=== PATIENT | female | born 1965 | race Caucasian/White ===

== ENCOUNTER → 2017-01-17 | Outpatient (CLI) | payer BC ==
[~2017-01-17] MED LIST: ACET-1256 PO; DEHA PO; INHALER INH; PROGESTERONE PO; VNTHFA/IN INH
--- NOTE | 2017-01-17 12:55 | MAMMOGRAPHY REPORT ---
BILATERAL DIGITAL SCREENING MAMMOGRAM TOMOSYNTHESIS WITH CAD: 01/17/2017 CLINICAL HISTORY: Routine screening. Patient has no complaints. TECHNIQUE: Breast tomosynthesis in addition to standard 2D mammography was performed. Current study was also evaluated with a Computer Aided Detection (CAD) system. COMPARISON: Comparison is made to exams dated: 01/13/2016 mammogram, 03/03/2014 mammogram, 02/25/2013 m ammogram, 02/15/2012 mammogram, 02/08/2011 mammogram, and 02/06/2010 mammogram - [facility] enter. BREAST COMPOSITION: There are scattered areas of fibroglandular density in both breasts. FINDINGS: No suspicious masses, calcifications, or areas of architectural distortion are noted in ei ther breast. There has been no significant interval change compared to prior exams. IMPRESSION: ACR BI-RADS CATEGORY 1: NEGATIVE There is no mammographic evidence of malignancy. A 1 year screening mammogram is recommended. The pa tient will receive written notification of the results. Approximately 10% of breast cancers are not detected with mammography. A negative mammographic report should not delay biopsy if a clinically suggestive mass is present. Kassie Garza M.D. ah/:01/17/2017 08:30:18 Mold Stacker: Shelia MILTON(Marlon)(M), [facility] letter sent: Normal 1/2 BI-RADS Code: ACR BI-RADS Category 1: Negative
== END | disposition home or self-care (01) ==
LOC: C.MAMM 07:31
PROVIDERS: ATTEND Nurse Practitioner Family
DX: Z12.31 Encounter for screening mammogram for malignant neoplasm of breast (principal)

== ENCOUNTER 2017-05-20 05:29 | Observation (INO) | payer BC, SELFPAY ==
[2017-05-15 09:14] VITALS: BMI 37.0
--- NOTE | 2017-05-15 09:38 | PAT Medication Instructions ---
Service Date May 15, 2017. Current Home Medication List Acetaminophen (Tylenol), 500 MG PO PRN [Inhaler], 2 PUFFS INH PRN Medication Instructions For Your Scheduled Surgery - Take the following medications the morning of surgery with a sip of water: Acetaminophen (Tylenol), 500 MG PO PRN (if needed) [Inhaler], 2 PUFFS INH PRN (if needed) - Take the following medications as scheduled the night before surgery: Acetaminophen (Tylenol), 500 MG PO PRN (if needed) [Inhaler], 2 PUFFS INH PRN (if needed) If you have any questions please call us at [phone] or [phone] or [phone]
[2017-05-15 10:26] LABS: INR 0.9 (0.9-1.1); PROTHROMBIN TIME (PATIENT) 10.1 SECONDS (9.0-12.0)
[2017-05-15 10:33] LABS: BASO % 0.4 %; BASO ABS # 0.03 K/uL (0-0.2); COMPLETE YES; EOS % 4.2 %; HEMATOCRIT 44.6 % (37-47); IG% 0.1 %; LYMPH % 39.4 %; LYMPH ABS # 2.64 K/uL (1.2-3.4); MEAN CELL VOLUME 88.7 fL (80-100); MEAN CORPUSCULAR HEMOGLOBIN 27.8 pg (25-34); MEAN CORPUSCULAR HGB CONC 31.4 g/dl (32-36); MEAN PLATELET VOLUME 10.1 fL (7.4-10.4); MONO % 8.2 %; NEUT % 47.7 %; PLATELET COUNT 383 K/uL (130-400); RED BLOOD COUNT 5.03 M/uL (4.2-5.4)
[2017-05-15 10:39] LABS: BUN/CREATININE RATIO 13.6 (10-20); CALCIUM 9.7 mg/dl (8.5-10.1); CREATININE 0.73 mg/dl (0.60-1.20); POTASSIUM 4.4 mmol/L (3.5-5.1)
[~2017-05-20] VITALS: Ht 160 cm; Wt 95.8 kg
[~2017-05-20 05:29] MED LIST changes: -DEHA PO; -PROGESTERONE PO; -VNTHFA/IN INH
[2017-05-20] MEDS ORDERED: VNTHFA/IN INH (05:53)
[2017-05-20 05:55] VITALS: BP 134/77; PULSE 90; TEMP 36.4; O2SAT 95; Ht 160 cm; Wt 95.8 kg
[2017-05-20] MEDS ORDERED: ENOXAPARIN 40 MG/0.4 ML SYR SQ SCH (06:00)
[2017-05-20] MEDS ORDERED: CEFAZOLIN 2000 MG/60 ML D5W IV SCH (06:00)
[2017-05-20] MEDS ORDERED: LACTATED RINGER'S 1000ML 500 ML IV ONE (06:00)
[2017-05-20] MEDS ORDERED: ROCURONIUM BROMIDE 10 MG/ML 5 ML VIAL IV ONE ×2 (06:54→08:41)
[2017-05-20] MEDS ORDERED: LIDOCAINE HCL 2% 2 ML VIAL (20MG/ML) ONE (06:54)
[2017-05-20] MEDS ORDERED: GLYCOPYRROLATE INJ 0.2 MG/ML VIAL ONE (06:54)
[2017-05-20] MEDS ORDERED: NEOSTIGMINE METHYLSULFATE 5 MG/5 ML SYR ONE (06:54)
[2017-05-20] MEDS ORDERED: DEXAMETHASONE SOD INJ 4 MG/ML VIAL ONE (06:54)
[2017-05-20] MEDS ORDERED: MIDAZOLAM HCL 1 MG/ML 2ML VIAL ONE (06:55)
[2017-05-20] MEDS ORDERED: FENTANYL CITRATE INJ 50 MCG/1 ML 2 ML VIAL ONE ×3 (06:55→13:18)
--- NOTE | 2017-05-20 07:01 | History & Physical Bridge Note ---
H&P Re-Evaluation Bridge Note: I have examined the patient, reviewed the History & Physical and in the interval since the performance of the History & Physical I have noted the following changes of clinical significance: No changes noted
[2017-05-20] MEDS ORDERED: LIDOCAINE HCL 1% 20 ML VIAL ONE ×3 (07:02→08:18)
[2017-05-20] MEDS ORDERED: BUPIVACAINE 0.5 % 5 MG/1 ML MPF 30ML VIAL ONE (07:02)
[2017-05-20] MEDS ORDERED: EpINEphrine INJ 1MG/ML AMP 1 MG/ML AMP ONE ×2 (07:02→08:18)
[2017-05-20] MEDS ORDERED: LIDOCAINE/EPINEPHRINE 1% 20 ML VIAL ONE ×2 (07:02→08:18)
[2017-05-20] MEDS ORDERED: SCOPOLAMINE 1.5 MG TDSY TD ONE ×2 (07:30→07:45)
[2017-05-20] MEDS ORDERED: ATROPINE SULFATE 0.1 MG/ML 5ML SYR IV PRN ×2 (07:45→13:30)
[2017-05-20] MEDS ORDERED: EpHEDrine SULFATE INJ 50 MG/ML AMP IV PRN ×2 (07:45→13:30)
[2017-05-20] MEDS ORDERED: PROMETHAZINE HCL INJ 6.25 MG in SODIUM CHLORIDE 0.9% 50ML 50 ML IV PRN ×2 (07:45→13:30)
[2017-05-20] MEDS ORDERED: FENTANYL CITRATE INJ 50 MCG/1 ML 2 ML VIAL IV PRN ×2 (07:45→13:30)
[2017-05-20] MEDS ORDERED: ONDANSETRON INJ 2 MG/ML 2 ML VIAL IV PRN ×3 (07:45→13:30)
[2017-05-20] MEDS ORDERED: LABETALOL HCL IV 5 MG/ML 20ML IV ONE (09:23)
[2017-05-20] MEDS ORDERED: HYDROmorphone INJ 2 MG/ML SYR/VIAL ONE (09:37)
[2017-05-20] MEDS ORDERED: EpHEDrine SULFATE 50MG/5ML SYR ONE (09:47)
[2017-05-20] MEDS ORDERED: ONDANSETRON INJ 2 MG/ML 2 ML VIAL ONE (11:31)
[2017-05-20] MEDS ORDERED: ACETAMINOPHEN 1000 MG/100 ML IV IV ONE (12:38)
--- NOTE | 2017-05-20 12:46 | [facility] Post Operative Brief Note ---
Immediate Operative Summary Operative Date May 20, 2017. Pre-Operative Diagnosis Encounter for cosmetic surgery Abdominal pannus Post-Operative Diagnosis Same Procedure(s) Performed Panniculectomy with Liposuction of Upper Abdomen Surgeon Dr Zambrano Deputy Head Surgeon(s) none Estimated Blood Loss 50ML Findings none Specimens NONE Drains JPx2 Anesthesia GET Complication(s) None Disposition Recovery Room / PACU
[2017-05-20] MEDS ORDERED: MoRPHine SULFATE 4 MG/ML 1 ML CARP\\VIAL IV PRN (13:00)
[2017-05-20] MEDS ORDERED: ALBUTEROL HFA 8 GM INHALER INH PRN (13:00)
[2017-05-20] MEDS ORDERED: DiphenhydrAMINE HCL 50 MG/ML VIAL IV PRN (13:00)
[2017-05-20] MEDS ORDERED: MoRPHine SULFATE 2 MG/ML CARP IV PRN ×2 (13:00)
[2017-05-20] MEDS ORDERED: OXYCODONE/ACETAMINOPHEN 5-325 TAB PO PRN (13:00)
[2017-05-20] MEDS ORDERED: OXAZEPAM 10MG CAP PO PRN (13:00)
--- NOTE | 2017-05-20 13:52 | Discharge Instructions ---
Discharge Instructions Date of Service May 20, 2017. Admission Reason for Admission: Abdominal Pannus, Cosmetic Surgery Discharge Discharge Diagnosis / Problem: abdominal pannus Discharge Goals Goal(s): Decrease discomfort, Improve function Activity Recommendations Activity Limitations: per Instructions/Follow-up section . Instructions / Follow-Up Instructions / Follow-Up ACTIVITY RECOMMENDATIONS: __Normal activities __xNo bending, lifting or straining __No driving _x_Driving allowed when you are off pain medications __Walking permitted __You should have help at home for ___ days DRESSINGS: __No dressings required _x_Keep dressings dry/in place until first office visit __Remove dressings ___ and leave dressings off __Apply ice ___ days __Remove dressings and reapply garment __Apply antibiotic ointment (Bacitracin, Neosporin, etc) to wounds 3-4 times/ day for 10 days BATHING: x__Keep dressings dry _x_Sponge bathing permitted __Showering permitted _x_No swimming, hot tubs or soaking in a tub MEDICATIONS: Resume previous medications unless instructed otherwise by your surgeon. _x_Do not use aspirin, Motrin, Advil or Ibuprofen as these may promote bleeding. Please use Tylenol. x__Prescription(s) provided: Percocet provided in office preoperatively OTHER INSTRUCTIONS: _x_Record drain output 2-3 times per day SPECIAL CARE INSTRUCTIONS: * It is normal to have a mild fever after surgery. If your temperature is higher than 101.5 degrees F, please call the office at [phone]. * Constipation is a typical side effect of pain medication. An over-the- counter stool softener will help relieve this. * Leaking around surgical drains may occur and should not cause concern. Sometimes these drains become clogged. If this happens, remove the bulb and milk the clot out of the tube, then replace the bulb. * Drainage from wounds after liposuction is normal and should be expected. Garments will become soiled. You should protect furniture and bedding. This drainage should mostly subside within 2-3 days. Leave garments in place unless instructed to remove them. * If you have unusual drainage from a wound or are concerned you have an infection or have any questions or concerns, please call the office at [phone]. FOLLOW UP VISIT: If not already scheduled, please call the office, , when you return home after surgery to schedule an appointment to be seen in __2_ days. Current Hospital Diet Patient's current hospital diet: Regular Diet Discharge Diet Recommended Diet: Regular Diet Procedures Procedures Performed: Panniculectomy with Liposuction of Upper Abdomen Pending Studies Studies pending at discharge: no Medical Emergencies . Who to Call and When: Medical Emergencies: If at any time you feel your situation is an emergency, please call 911 immediately. . Non-Emergent Contact Non-Emergency issues call your: Primary Care Provider, Surgeon Call Non-Emergent contact if: temperature is above 101.5, your pain is worsening . "Provider Documentation" section prepared by Allison Zambrano. . VTE Core Measure Inpt VTE Proph given/why not?: Enoxaparin (Lovenox)SQ, SCD's [place] Drug Monitoring Program Search Results: patient reviewed within database, no issues identified ( documented in office chart)
--- NOTE | 2017-05-20 14:13 | Anesthesiology Progress Note ---
Anesthesia Post Op Note Date & Time May 20, 2017 at 14:13 Vital Signs Pain Intensity: 3 Vital Signs Past 12 Hours Date Time Temp Pulse Resp B/P (MAP) Pulse Ox O2 Delivery O2 Flow Rate FiO2 05/20/17 13:45 69 18 110/66 97 Nasal Cannula 2 05/20/17 13:40 36.4 69 16 106/68 97 Nasal Cannula 2 05/20/17 13:32 79 17 119/74 98 Nasal Cannula 2 05/20/17 13:30 85 16 89/67 99 Nasal Cannula 2 05/20/17 13:20 80 17 124/74 99 Oxymask 10 05/20/17 13:10 66 20 110/64 97 Oxymask 10 05/20/17 13:03 36.1 87 16 121/79 99 Oxymask 10 05/20/17 05:55 36.4 90 20 134/77 (96) 95 Room Air Notes Mental Status: alert / awake / arousable, participated in evaluation Pt Amnestic to Procedure: Yes Nausea / Vomiting: adequately controlled Pain: adequately controlled Airway Patency, RR, SpO2: stable & adequate BP & HR: stable & adequate Hydration State: stable & adequate Anesthetic Complications: no major complications apparent
--- NOTE | 2017-05-20 14:17 | Progress Note ---
Progress Note Date of Service May 20, 2017. Progress Note Post op check complains of nausea. received Zofran afebrile VSS dressings c/d/i JPs 30 cc total, serosanguinous pain and nausea meds prn observe overnight
[2017-05-20] MEDS ORDERED: IV FLUIDS COMPLETED PRN (14:30)
[2017-05-20 14:33] VITALS: BP 101/60; PULSE 74; TEMP 36.6; O2SAT 98
[2017-05-20] MEDS: PROMETHAZINE HCL INJ 12.5 MG in SODIUM CHLORIDE 0.9% 50ML 50 ML IV PRN (14:40)
[2017-05-20 15:00] VITALS: BP 106/71; PULSE 71; TEMP 36.3; O2SAT 100
[2017-05-20] MEDS: D5W AND 1/2NSS + 20MEQ KCL 1,000 ML IV SCH ×2 (15:08→23:24)
[2017-05-20] MEDS: CEFAZOLIN IV 2,000 MG in DEXTROSE 5% 50ML 50 ML IV SCH ×2 (15:28→23:24)
[2017-05-20] MEDS: CHECK SCOPOLAMINE PATCH PLACEMENT SCH ×2 (15:31→23:24)
[2017-05-20 16:00] VITALS: BP 118/78; PULSE 71; TEMP 34.7; O2SAT 98
[2017-05-20 16:59] VITALS: BP 115/78; PULSE 72; TEMP 36.4; O2SAT 100
[2017-05-20] MEDS: OXYCODONE/ACETAMINOPHEN 5-325 TAB PO PRN ×2 (19:18→23:23)
--- NOTE | 2017-05-20 22:33 | OPERATIVE REPORT ---
DATE OF OPERATION: 05/20/2017 PREOPERATIVE DIAGNOSES: Abdominal pannus, abdominal obesity. POSTOPERATIVE DIAGNOSES: Same. PROCEDURE: Panniculectomy with liposuction of the upper abdomen. SURGEON: Dr. Allison Zambrano. TELEGRAPHIC TYPEWRITER INSTALLER: None. ANESTHESIA: General. COMPLICATIONS: None. INDICATION FOR THE PROCEDURE: The patient is a 51-year-old female who presented to me desiring cosmetic improvement in her abdomen. Due to her obesity, we discussed the possibility of panniculectomy with liposuction of the upper abdomen without performing full abdominoplasty or plication of the rectus muscles. She agreed to this plan. BRIEF DESCRIPTION OF THE PROCEDURE: Risks, benefits, and alternatives of the procedure were explained to the patient who agreed and signed consent. She was identified and marked in the preoperative holding area. She was brought to the operating room where she was positioned supine and placed under general anesthesia without incident. A Du catheter was placed. Surgical site was prepped and draped sterilely. A time-out procedure was performed. Reassessed the markings which included a low horizontal abdominal incision which the midportion 7 cm above the vulvar commissure. Incision was marked bilaterally to the ASIS. I began by injecting 1% lidocaine with epinephrine along the planned incision as well as in several small areas for stab incisions for liposuction access. I began by tumescing the planned areas of liposuction. A total of 2240 mL of tumescent fluid were injected into the epigastric and subcutaneous tissue as well as towards the flanks. I did not tumesce or perform liposuction to the inferior aspect of the abdomen as this tissue would be removed with the panniculectomy. I began the procedure by using a 4 mm Le cannula to first pretunnel and then liposuction in the previously marked areas. Multiple access incisions were used to treat each area and cannula was kept in continued motion. This was performed to the upper abdomen, epigastric area, and bilaterally toward the flanks. Liposuction was done predominantly performed in the subscarpal area and deeper subcutaneous fat in order to avoid compromising blood supply to superior flap are causing contour deformities. End points of liposuction were return of bloody fluid and uniform pinch. A total of 2700 mL of lipoaspirate were obtained. At this point, a 15 blade scalpel was used to open the lower abdominal incision and the superficial dermis and deep dermis, subcutaneous fat, Rosalind's fascia down to the abdominal wall was dissected using electrocautery. Care was taken to bevel superiorly in order to avoid encountering the inguinal region. Electrocautery was used to elevate the anterior abdominal skin flap and perforating vessels were ligated using electrocautery. Dissection was carried to the level of the umbilicus. A 15 blade scalpel was used to make a periumbilical incision and this incision was deepened using 15 blade scalpel and carried down to abdominal wall using electrocautery. The umbilicus was carefully dissected out in its entirety attempting to leave some fat surrounding it in order to preserve blood supply. Dissection was then carried about 8 cm superior to the umbilicus in a narrow tunnel in the midline only in order to avoid compromise to the blood supply. This was to facilitate inset. At this point, the bed was flexed to facilitate closure. Superior skin flap was inset along the mid portion of the mons pubis using 2-0 Vicryl suture. Skin flaps were marked for excision. A 15 blade scalpel was used to make these incisions and the incision was deepened using electrocautery through dermis, subcutaneous fat, Rosalind's fascia. This was resected bilaterally. Some subscarpal fat was directly resected using electrocautery. At this point, it was apparent the mons pubis needed to be defatted and this was performed directly using electrocautery. 0.25% Marcaine plain was injected into the abdominal fascia. Two 15 Faroese Rodrick drains were placed in the wound bed and brought out through a separate stab incisions in the mons pubis mons pubis. The drains were sutured into place using 3-0 nylon. Closure was begun in a lateral to medial direction using 2-0 Vicryl Rosalind's fascia sutures, 2-0 Vicryl deep dermal sutures, 2-0 PDO running superficial dermal Quill suture, 3-0 Monocryl running subcuticular suture. Umbilicus was brought out through an inverted triangular incision in the abdominal wall and sutured into place using 4-0 chromic half buried horizontal mattress sutures. There were no liposuction incisions to close as these were resected with the panniculectomy specimen. The umbilicus was dressed using Xeroform and the incision was dressed using Dermabond Prineo followed by dry dressings and an abdominal binder. The procedure was tolerated well. Estimated blood loss was 50 mL. Total laparoscopic was 2700 mL. The patient was awakened and transferred to recovery in satisfactory condition. I attest to the content of the Intraoperative Record and any orders documented therein. Any exceptions are noted below. MTDD
[2017-05-20 23:15] VITALS: BP 113/70; PULSE 92; TEMP 37; O2SAT 93
[2017-05-21] MEDS: PROMETHAZINE HCL INJ 12.5 MG in SODIUM CHLORIDE 0.9% 50ML 50 ML IV PRN (00:11)
[2017-05-21 03:43] VITALS: BP 116/74; PULSE 100; TEMP 37.4; O2SAT 91
--- NOTE | 2017-05-21 06:09 | Progress Note ---
Progress Note Date of Service May 21, 2017. Progress Note POD #1 s/p liposuction and panniculectomy Doing well. Pain controlled afebrile VSS dressings c/d/i abdomen with expected tenderness and ecchymosis JPs serosanguinous 105/90 cc binder folded. crease noted in upper abdominal skin Du out this am OOB/ambulate Discharge home with office follow up tomorrow for dressing change provided information for ordering a compression girdle binder repositioned
[2017-05-21] MEDS ORDERED: NURSING VERBAL MED ORDER ONE (06:30)
[2017-05-21 08:11] VITALS: BP 99/61; PULSE 88; TEMP 37; O2SAT 92
[2017-05-21 08:16] VITALS: BP 99/61; PULSE 88; TEMP 37; O2SAT 92
[2017-05-21] MEDS: CHECK SCOPOLAMINE PATCH PLACEMENT SCH (08:19)
[2017-05-21] MEDS ORDERED: MULTIVITAMIN TAB PO SCH (09:00)
[2017-05-21] MEDS ORDERED: ENOXAPARIN 40 MG/0.4 ML SYR SQ SCH (09:00)
--- NOTE | 2017-05-27 12:08 | DISCHARGE SUMMARY ---
ADMISSION DIAGNOSIS: Abdominal lipodystrophy, desire for cosmetic surgery. SECONDARY DIAGNOSIS: None. PROCEDURE: The patient was admitted on 05/20/2017 to undergo suction assisted lipectomy of the abdomen as well as panniculectomy. BRIEF DESCRIPTION OF HOSPITAL COURSE: The patient underwent suction assisted lipectomy and panniculectomy of the abdomen for cosmetic purposes on 05/20/2017. She was transferred to the med/surg floor postoperatively for observation. Other than some mild nausea, postoperative course was uneventful. She was discharged to home the following day. She was instructed to resume preoperative medications. Prescription for Percocet was provided. She was scheduled for office followup on postoperative day 2.
== END 2017-05-21 09:15 | disposition home or self-care (01) ==
LOC: C.ACU 05:29 → C.MSN 12:51 → ENRESERV 13:32
PROVIDERS: ADMIT Plastic Surgery; ATTEND Plastic Surgery
DX: E65 Localized adiposity (principal); E66.9 Obesity, unspecified; N92.0 Excessive and frequent menstruation with regular cycle; Z83.79 Family history of other diseases of the digestive system; K21.9 Gastro-esophageal reflux disease without esophagitis

== ENCOUNTER → 2017-10-01 | Outpatient (CLI) | payer OTHER ==
[~2017-10-01] MED LIST changes: -ACET-1256 PO; -INHALER INH; +VNTHFA/IN INH
--- NOTE | 2017-10-01 07:41 | DIAGNOSTIC IMAGING REPORT ---
ABDOMEN LIMITED (US) HISTORY: Pain. Mass. R10.9 Abdominal [id number]. COMPARISON: None. FINDINGS: Ultrasonic evaluation of the right lower quadrant demonstrates a complex partially cystic multiloculated mass measuring 6 x 12 x 3 cm. Given the patient's operative history this is suggestive of hematoma. IMPRESSION: Well-circumscribed complex hematoma right lower quadrant at the site of the patient's clinically palpable abnormality. The above report was generated using voice recognition software. It may contain grammatical, syntax or spelling errors. Electronically signed by: Hank Goldman M.D. 10/01/2017 7:40 AM Dictated Date/Time: 10/01/2017 7:36 AM
== END | disposition home or self-care (01) ==
LOC: C.ULTR 07:04
PROVIDERS: ATTEND Physician Assistant
DX: R10.9 Unspecified abdominal pain (principal); M79.81 Nontraumatic hematoma of soft tissue